=== PATIENT | female | born 1985 | race African-American/Black ===

== ENCOUNTER → 2020-03-04 | Outpatient (CLI) | payer BC ==
[~2020-03-04] MED LIST: METH20CP3 PO
== END | disposition home or self-care (01) ==
LOC: LAB 13:14
PROVIDERS: ATTEND Surgery
DX: Z01.818 Encounter for other preprocedural examination (principal); Z11.59 Encounter for screening for other viral diseases
CPT/HCPCS: U0003-CS

== ENCOUNTER → 2020-03-08 | Day surgery (SDC) | payer BC ==
[~2020-03-08] VITALS: Ht 160 cm; Wt 108.9 kg
[~2020-03-08] MED LIST changes: +BUPIVACAINE-EPI 0.5%-1:200000 MPF 30 ML VIAL. ONE; +DESFLURANE 16 TO 30 MINUTES. IH ONE; +DEXAMETHASONE SOD PHOS 4 MG/ML VIAL ONE; +GLYCOPYRROLATE 1 MG/5 ML VIAL. ONE; +HYDROmorphone 2 MG/ML VIAL IV PRN; +IV RINGERS,LACTATED 1000ML 1,000 ML IV SCH; +LIDOCAINE 1% PF 2 ML VIAL. ID PRN; +MIDAZOLAM HCL/PF 2 MG/2 ML VIAL. ONE; +MORPHINE SULFATE 2 MG/ML VIAL. IV PRN; +NEOSTIGMINE METHYLSULFATE 5 MG/5 ML SYRINGE. ONE; +ONDANSETRON PF 4 MG/2 ML VIAL. IV PRN; +ONDANSETRON PF 4 MG/2 ML VIAL. ONE; +PROCHLORPERAZINE 10 MG/2 ML VIAL. IV PRN; +ROCURONIUM 100 MG/10 ML VIAL. ONE; +SUCCINYLCHOLINE 200 MG/10 ML VIAL. ONE; +ceFAZolin 2GM PREMIX 2 GM/50 ML BAG IV ONE; +fentaNYL PF VIAL 100 MCG/2 ML VIAL IV PRN; +fentaNYL PF VIAL 100 MCG/2 ML VIAL ONE; +oxyCODONE/APAP 5/325 1 TAB TABLET PO ONE
--- NOTE | 2020-03-08 15:00 | PDOC4 ---
Operative Note Operative Note Operative Note: Preoperative Diagnosis: Pilonidal cyst Postoperative Diagnosis: Same Procedure: Excision of pilonidal cyst Surgeon: Erich Anesthesia: General EBL: 40 mL Specimen: Pilonidal cyst to pathology Drains: None Complications: None Indication: The patient is a 34-year-old female presented with a symptomatic pilonidal cyst. She requests excision. The details and risks of surgery were discussed with the patient. The risks include bleeding, infection, recurrence, wound healing problems, pain, healing by secondary intent, potential need for ad ditional surgery procedure. Description: The patient was taken to the operating room and placed supine on the operating table. She was then placed prone. The sacrococcygeal skin was prepped with Betadine and draped in a standard surgical manner. Inspection showed a couple of midline pits one of which seem to be the origin of the pilonidal cyst and tract. A probe was readily introduced which passed several centimeters superiorly outlining the tract of the cyst. An elliptical incision was made around the midline pits extending beyond the end of the pilonidal tract. Cautery dissection was used in the subcutaneous tissues to mobilize the involved tissue from the surrounding subcutaneous fat. Several bleeding vessels were controlled with cautery. The involved area was fully excised and sent to pathology. The wound base was then irrigated with sterile saline. The deep tissues were approximated with interrupted 0 Vicryl sutures. The superficial subcutaneous layer was closed with 3-0 Vicryl. The skin was approximated for Monocryl. A sterile dressing was applied. The patient tolerated the procedure well and was sent to the recovery room in stable condition. At the end of the case all counts were correct. RENZO IBANEZ MD Mar 08, 2020 15:00
--- NOTE | 2020-03-08 15:04 | DISCH ---
DISCHARGE INSTRUCTIONS Condition on Discharge Condition on Discharge: Stable Activity After Discharge Activity Instructions for Disc: Other, see below (no strenuous activity, try to avoid pressure to pilonidal region) Diet after Discharge Diet after Discharge: Regular Wound Incision Care Wound/Incision Care: Other, see below (keep dressing clean and dry X 72 hours, may then remove and shower; reapply dry gauze and keep covered; no submerging under water) Follow-Up Follow up with: Dr Ibanez in 1 week in office, call for appt [phone] RENZO IBANEZ MD Mar 08, 2020 15:04
[2020-03-08 15:25] VITALS: BP 104/60
--- NOTE | 2020-03-09 17:06 | PATHOLOGY ---
[facility] Accession Number: [id number] . 01 Material submitted: . buttock - PILONIDAL CYST . 01 Clinical history: . Pilonidal cyst . 02 Diagnosis: Skin and subcutaneous tissue, pilonidal cystectomy: - Pilonidal cyst/sinus with surrounding fibrosis and chronic inflammation. . (JPM:mm; 03/09/2020) [facility] 03/09/2020 1523 Local . 02 Electronically signed: . Vignesh Donovan MD, Pathologist NPI- [id number] . 01 Gross description: . The specimen is received in formalin, labeled "Makeroseliaa Fei, pilonidal cyst". Received is an ellipse of macias-brown skin with attached underlying fibroadipose tissue measuring 6.1 x 1.5 x 2.2 cm in greatest dimensions. Sectioning reveals a linear sinus tract measuring 2.3 cm in length by 0.2 cm in diameter. The remainder of the specimen displays white-adame, fibrous to bright yellow, lobulated cut surfaces. The specimen is submitted representatively in cassette A1. ([facility]; 03/08/2020) [facility] 03/09/2020 1522 Local . 02 Pathologist provided ICD-10: L05.91, L90.5, L98.9 . 02 CPT . 362212 Specimen Comment: A courtesy copy of this report has been sent to [phone], [phone] Specimen Comment: [id number] Specimen Comment: Report sent to / DR EUBANKS Performed at: [address], [place], [place] [id number] MD Keenan Reyna MD Phone: [phone] Performed at: 02 [facility] [address] [place], [place] [id number] MD Vignesh Donovan MD Phone: [phone]
== END ==
LOC: SURG 11:44
PROVIDERS: ATTEND Surgery
DX: L05.91 Pilonidal cyst without abscess (principal); E66.01 Morbid (severe) obesity due to excess calories; J45.909 Unspecified asthma, uncomplicated; E11.9 Type 2 diabetes mellitus without complications; Z68.41 Body mass index [BMI] 40.0-44.9, adult; Z79.84 Long term (current) use of oral hypoglycemic drugs
CPT/HCPCS: 11770; 81025; 88304; A7015; J0696; J1100; J2250; J2405; J2710; J3010; J3490; J0330; A4461